=== PATIENT | male | born 1980 | race Caucasian/White ===

== ENCOUNTER 2017-10-23 18:32 | Emergency (ER) | payer MEDICAID, OTHER | END 2017-10-23 22:23 | disposition home or self-care (01) | LOC: FTE 18:32 | DX: R00.2 Palpitations (principal); E11.9 Type 2 diabetes mellitus without complications; Z79.84 Long term (current) use of oral hypoglycemic drugs | CPT/HCPCS: 71045; 82962; 93005; 99284-25 ==